=== PATIENT | female | born 1955 | race Caucasian/White ===

== ENCOUNTER 2021-09-29 18:58 | Emergency (ER) | payer OTHER ==
[~2021-09-29] VITALS: Ht 160 cm; Wt 97.1 kg
[~2021-09-29 18:58] MED LIST: ASPIRIN EC81 MG PO; AUSTEDO12 MG PO; BENADRYL25 MG PO; BENZTROPINE MESY1 M1 PO; BENZTROPINE MESY1 MG PO; BENZTROPINE MESY2 MG PO; BRILINTA90 MG PO; CIPRO500 MG PO; COLACE100 MG PO; COZAAR50 MG PO; CYMBALTA 30MG C30 MG PO; CYMBALTA60 MG PO; DULOXETINE HCL30 MG PO; FISH OIL 1,2001 EACH PO; FLUPHENAZINE HCL5 MG PO; IMDUR 30MG TABL30 MG PO; ISOSORBIDE MONO60 MG PO; LAMICTAL100 MG PO; LIPITOR20 MG PO; LIPITOR40 MG PO; LOPRESSOR25 MG PO; METRONIDAZOLE500 MG PO; OMEPRAZOLE40 MG PO; PERCOCET 5-3251 EACH PO; PERCOCET 5/3251 TAB PO; PRILOSEC20 MG PO; PRINIVIL20 MG PO; SYNTHROID88 MCG PO; Stool Softener PO; VOLTAREN **OUT75 MG PO; XARELTO10 MG PO; ZYPREXA 5MG TABL5 MG PO; ZYRTEC10 MG PO
== END 2021-09-29 21:22 | disposition home or self-care (01) ==
LOC: FER 18:58
DX: S80.02XA Contusion of left knee, initial encounter (principal); I10 Essential (primary) hypertension; Z28.311 Partially vaccinated for COVID-19; Z88.8 Allergy status to other drugs, medicaments and biological substances; Z91.010 Allergy to peanuts; W19.XXXA Unspecified fall, initial encounter; Y92.009 Unspecified place in unspecified non-institutional (private) residence as the place of occurrence of the external cause
CPT/HCPCS: 73564